=== PATIENT | female | born 1995 | race Caucasian/White ===

== ENCOUNTER 2018-05-03 00:51 | Emergency (ER) | payer OTHER ==
[~2018-05-03] VITALS: Ht 154.9 cm; Wt 88.9 kg
[2018-05-03 01:29] VITALS: Ht 154.9 cm; Wt 88.9 kg
[2018-05-03 02:17] VITALS: BP 123/77
== END 2018-05-03 02:44 | disposition home or self-care (01) ==
LOC: ED 00:51
DX: S20.212A Contusion of left front wall of thorax, initial encounter (principal); S40.022A Contusion of left upper arm, initial encounter; V43.52XA Car driver injured in collision with other type car in traffic accident, initial encounter; Y93.I9 Activity, other involving external motion; Y92.89 Other specified places as the place of occurrence of the external cause; Y99.8 Other external cause status

== ENCOUNTER 2018-11-13 15:03 | Emergency (ER) | payer OTHER ==
[~2018-11-13] VITALS: Ht 154.9 cm; Wt 93.0 kg
[2018-11-13 15:09] VITALS: Ht 154.9 cm; Wt 93.0 kg
[2018-11-13 16:48] VITALS: BP 122/86
== END 2018-11-13 16:44 | disposition home or self-care (01) ==
LOC: ED 15:03
DX: S00.03XA Contusion of scalp, initial encounter (principal); S09.8XXA Other specified injuries of head, initial encounter; W07.XXXA Fall from chair, initial encounter; Y93.89 Activity, other specified; Y92.89 Other specified places as the place of occurrence of the external cause; Y99.8 Other external cause status

== ENCOUNTER 2020-08-24 12:27 | Emergency (ER) | payer OTHER ==
[~2020-08-24] VITALS: Ht 152.4 cm; Wt 91.6 kg
[2020-08-24 12:54] VITALS: BP 154/76; Ht 152.4 cm; Wt 91.6 kg
== END 2020-08-24 14:38 | disposition home or self-care (01) ==
LOC: ED 12:27
DX: S93.402A Sprain of unspecified ligament of left ankle, initial encounter (principal); X50.1XXA Overexertion from prolonged static or awkward postures, initial encounter; Y93.01 Activity, walking, marching and hiking; Y92.89 Other specified places as the place of occurrence of the external cause; Y99.8 Other external cause status

== ENCOUNTER 2020-10-16 10:37 | Inpatient (IN) | payer OTHER ==
[~2020-10-16] VITALS: Ht 152.4 cm; Wt 89.4 kg
[2020-10-16 10:42] VITALS: Ht 152.4 cm; Wt 89.4 kg
[2020-10-16 11:19] LABS: BASOPHIL % 0.3 % (0-2); PLATELET COUNT 277 x10^3mcL (130-400); RED CELL DISTRIBUTION WIDTH 12.1 % (11.5-14.5)
[2020-10-16 12:11] LABS: CALCIUM 8.7 mg/dL (8.5-10.1); CARBON DIOXIDE 23.6 mmol/L (21-32); CHLORIDE SERUM 104 mmol/L (98-107); CREATININE SERUM 0.8 mg/dL (0.6-1.0); GFR1 > 60 mL/min; GLUCOSE SERUM 108 mg/dL (74-106); POTASSIUM SERUM 3.5 mmol/L (3.5-5.1); SODIUM SERUM 140 mmol/L (136-145)
[2020-10-16 12:16] LABS: ALBUMIN 3.5 g/dL (3.4-5.0); ALKALINE PHOSPHATASE 81 U/L (46-116); ALT/SGPT 96 U/L (14-59); AST/SGOT 100 U/L (15-37); BILIRUBIN TOTAL 0.52 mg/dL (0.20-1.00); TOTAL PROTEIN, SERUM 8.2 g/dL (6.4-8.2)
[2020-10-17 06:51] LABS: BASOPHIL % 0.2 % (0-2); PLATELET COUNT 262 x10^3mcL (130-400); RED CELL DISTRIBUTION WIDTH 12.3 % (11.5-14.5)
[2020-10-17 07:00] LABS: ALKALINE PHOSPHATASE 59 U/L (46-116); ALT/SGPT 64 U/L (14-59); AST/SGOT 38 U/L (15-37); BILIRUBIN TOTAL 0.29 mg/dL (0.20-1.00); CALCIUM 8.1 mg/dL (8.5-10.1); CHLORIDE SERUM 109 mmol/L (98-107); CREATININE SERUM 0.7 mg/dL (0.6-1.0); GFR1 > 60 mL/min; GLUCOSE SERUM 99 mg/dL (74-106); LIPASE 162 IU/L (73-393); MAGNESIUM 2.3 mg/dL (1.8-2.4); PHOSPHOROUS 3.4 mg/dL (2.5-4.9); POTASSIUM SERUM 4.1 mmol/L (3.5-5.1); SODIUM SERUM 143 mmol/L (136-145); TOTAL PROTEIN, SERUM 6.9 g/dL (6.4-8.2); TRIGLYCERIDES 174 mg/dL (<150)
[2020-10-17 07:01] LABS: ALBUMIN 2.9 g/dL (3.4-5.0); CHOLESTEROL 132 mg/dL (<200); CHOLESTEROL/HDL RATIO 4.7; HDL CHOLESTEROL 28 mg/dL (40-60)
[2020-10-17 12:22] LABS: C REACTIVE PROTEIN 1.4 mg/dL (<=0.9)
[2020-10-17] MEDS ORDERED: MOT400 PO (18:11)
[2020-10-17 18:43] VITALS: BP 135/67
== END 2020-10-17 18:43 | disposition home or self-care (01) | DRG 532 ==
LOC: ED 10:37 → MU 14:11
PROVIDERS: Emergency Medicine; ADMIT Hospitalist; ATTEND Hospitalist
DX: N83.201 Unspecified ovarian cyst, right side (principal); U07.1 COVID-19; R19.00 Intra-abdominal and pelvic swelling, mass and lump, unspecified site; R74.01 Elevation of levels of liver transaminase levels
CPT/HCPCS: 85378; G0378; J0696; J2270; J2543; J7030; J7042; Q9967; U0003

== ENCOUNTER 2020-10-31 09:03 | Inpatient (IN) | payer OTHER ==
[~2020-10-31] VITALS: Ht 152.4 cm; Wt 93.6 kg
[~2020-10-31 09:03] MED LIST: MOT400 PO
[2020-10-31 09:12] VITALS: Ht 152.4 cm; Wt 93.6 kg
--- NOTE | 2020-10-31 10:03 | NUR ---
PT. HERE FOR INCREASED ABD PAIN, RECENT DX OF LARGE OVARIAN CYST, PT. DENIES NVD, ABD LARGE AND ROUND, REPORTS GENERALIZED PAIN, NO APPARENT DISTRESS, RESPIRATIONS EVEN AND UNLABORED, AAOX4
[2020-10-31 10:12] LABS: BASOPHIL % 0.6 % (0.2-1.3); PLATELET COUNT 362 x10^3mcL (179-408)
[2020-10-31 10:37] LABS: CALCIUM 8.9 mg/dL (8.5-10.1); CARBON DIOXIDE 25.2 mmol/L (21-32); CHLORIDE SERUM 104 mmol/L (98-107); CREATININE SERUM 0.7 mg/dL (0.6-1.0); GFR1 > 60 mL/min; GLUCOSE SERUM 91 mg/dL (74-106); POTASSIUM SERUM 3.7 mmol/L (3.5-5.1); SODIUM SERUM 140 mmol/L (136-145)
[2020-10-31 10:49] LABS: ALBUMIN 3.8 g/dL (3.4-5.0); ALKALINE PHOSPHATASE 69 U/L (46-116); ALT/SGPT 25 U/L (14-59); AST/SGOT 20 U/L (15-37); BILIRUBIN TOTAL 0.5 mg/dL (0.20-1.00); LIPASE 91 IU/L (73-393); TOTAL PROTEIN, SERUM 7.6 g/dL (6.4-8.2)
--- NOTE | 2020-10-31 12:48 | NUR ---
UPDATED PT. ON PLAN OF CARE, AWAITING BED ON FLOOR, PT. VERBALIZED UNDERSTANDING, NO APPARENT DISTRESS RESPIRATIONS EVEN AND UNLABORED, AAOX4
--- NOTE | 2020-10-31 19:20 | NUR ---
RECEIVED REPORT FROM ELIDA SHEPHERD. PT IN NAD
[2020-10-31] MEDS ORDERED: TYLENOL WITH CO1 TA2 (20:47)
--- NOTE | 2020-11-01 02:16 | NUR ---
REPORT GIVEN TO DEMARIO SHEPHERD
--- NOTE | 2020-11-01 02:30 | NUR ---
RECEIVED PT FROM ED VIA WHEELCHAIR, CAME IN DUE TO RIGHT ABDOMINAL PAIN X1 MONTH. AAOX4. DENIES HEADACHE/DIZZINESS. ABLE TO FOLLOW COMMANDS. NO SOB NOTED, O2 SAT=96%, RA. DENIES CHEST PAIN/PRESSURE. DENIES ABDOMINAL PAIN/NUASEA/VOMITING. ABDOMEN IS SOFT AND ROUNDED. LAST BM-10/31/20, FORMED. VOIDS. STATED THAT SHE HAS BLADDER PAIN ON URINATION, DENIES BLOOD IN THE URINE. IV SITE PATENT AND INTACT. SIDE RAILS UPX2. CALL LIGHT ON REACH. ENDORSED TO PRIMARY NURSE NARCISO FOR CONTINUITY OF CARE
--- NOTE | 2020-11-01 02:32 | NUR ---
PT TRANSPORTED TO [facility] VIA WHEELCHAIR BY EVANGELISTA SHEPHERD. PT IN NAD
[2020-11-01 02:37] VITALS: BP 107/63
--- NOTE | 2020-11-01 02:45 | NUR ---
RECEIVED PT FROM RESOURCE NURSE. PT ALERT IN BED, ABLE TO VERBALIZE NEEDS. DENIES PAIN AT THIS TIME AND STATED SHE WANTED TO GET SOME REST. ALL NEEDS MET, SAFETY PRECAUTIONS IN PLACE, CALL BUTTON WITHIN REACH, WILL CONTINUE TO MONITOR.
[2020-11-01 06:05] VITALS: BP 113/62
--- NOTE | 2020-11-01 06:55 | NUR ---
PT SLEPT IN INTERVALS THROUGHOUT THE NIGHT BUT EASILY AROUSABLE. NO COMPLAINTS OF PAIN. NO ACUTE CHANGES OVERNIGHT. CALL BUTTON WITHIN REACH, CARE ENDORSED TO AM NURSE.
--- NOTE | 2020-11-01 07:00 | NUR ---
REC'VD PT FROM NIGHT RN. PT RESTING IN BED WITH EYES CLOSED BUT EASILY AROUSABLE. AAOX4. RES E/U. IV SITE TO LAC SL, FLUSHED AND PATENT. NO ACUTE DISTRESS NOTED. DENIES PAIN/DISCOMFORT AT THIS TIME.
[2020-11-01 07:12] LABS: BASOPHIL % 0.3 % (0.2-1.3); PLATELET COUNT 327 x10^3mcL (179-408)
[2020-11-01 07:31] LABS: ALBUMIN 3.5 g/dL (3.4-5.0); ALKALINE PHOSPHATASE 64 U/L (46-116); ALT/SGPT 29 U/L (14-59); AST/SGOT 27 U/L (15-37); BILIRUBIN TOTAL 0.7 mg/dL (0.20-1.00); CARBON DIOXIDE 26.4 mmol/L (21-32); CHLORIDE SERUM 104 mmol/L (98-107); CREATININE SERUM 0.8 mg/dL (0.6-1.0); GFR1 > 60 mL/min; GLUCOSE SERUM 73 mg/dL (74-106); MAGNESIUM 2.1 mg/dL (1.8-2.4); SODIUM SERUM 140 mmol/L (136-145); TOTAL PROTEIN, SERUM 7.1 g/dL (6.4-8.2)
[2020-11-01 08:49] VITALS: BP 106/58
--- NOTE | 2020-11-01 11:26 | NUR ---
PT C/O ABDOMINAL PAIN, GIVEN MORPHINE PER EMAR
[2020-11-01 12:57] VITALS: BP 108/63
--- NOTE | 2020-11-01 17:10 | NUR ---
OBTAINED SURGICAL CONSENT FROM PATIENT. EDUCATION GIVEN REGARDING POTENTIAL POST OP INFECTION. INSTRUCTED PT THAT SHE IS NPO AT 2330 FOR SURGERY IN THE MORNING. PT VERBALIZED UNDERSTANDING
--- NOTE | 2020-11-01 17:45 | NUR ---
PT C/O ABDOMINAL PAIN, GIVEN NORCO PER EMAR
[2020-11-01 18:36] VITALS: BP 108/76
--- NOTE | 2020-11-01 18:46 | NUR ---
NO SIGNIFICANT CHANGES NOTED. NO ACUTE DISTRESS NOTED. DENIES PAIN/DISCOMFORT AT THIS TIME. GIVEN COLD WATER REQUESTED. WILL ENDORSE CARE TO NEXT SHIFT
--- NOTE | 2020-11-01 19:15 | NUR ---
RECEIVED PT FROM AM NURSE, PT AA/O X 4 ABLE TO MAKE NEEDS KNOWN, CLEAR SPEECH. DENIES HEADACHE/ DENIES DIZZINESS. RESPIRATIONS E/U ON RA. DENIES SOB, NO RESPIRATORY DISTRESS. MED SURG, DENIES CHEST PAIN/ CHEST PRESSURE. ACTIVE BS X 4 QUADS, ABD SOFT, ROUNDED AND DISTENDED. LAST BM 10/31/20. DENIES ABD PAIN AT THIS TIME. IV TO LAC SL, INTACT FLUSHING WELL, NO ERYTHEMA/ NO INFILTRATION. DENIES PAIN. NO CONCERNS AT THIS TIME, CALL BUTTON WITHIN REACH, WILL CONTINUE TO MONITOR.
[2020-11-01 20:35] VITALS: BP 111/53
--- NOTE | 2020-11-02 01:22 | NUR ---
PT STATED 7/10 ABD PAIN, MORPHINE IVP PRN WAS GIVEN. CALL LIGHT WITHIN REACH. WILL CONTINUE TO MONITOR.
[2020-11-02 05:11] VITALS: BP 112/66
--- NOTE | 2020-11-02 05:12 | NUR ---
PT SLEPT IN INTERVALS THROUGHOUT THE SHIFT, BUT EASILY AROUSABLE. DENIES PAIN AT THIS TIME. RESPIRATIONS E/U ON RA, NO SOB. PT HAS BEEN NPO SINCE 2300 FOR SURGERY. NO ACUTE CHANGES OVERNIGHT. CALL BUTTON WITHNORA MONSALVE, WILL ENDORSE CARE TO AM NURSE
--- NOTE | 2020-11-02 07:15 | NUR ---
REC'VD PT FROM NIGHT RN. PT CURRENTLY IN OR FOR PROCEDURE. WILL ASSESS WHEN PT GETS BACK FROM PROCEDURE.
--- NOTE | 2020-11-02 07:16 | NUR ---
OR NURSE ARRIVED TO TAKE PT TO SURGERY AT THIS TIME.
[2020-11-02 08:34] LABS: BASOPHIL % 0.4 % (0.2-1.3); PLATELET COUNT 347 x10^3mcL (179-408); RED CELL DISTRIBUTION WIDTH 13.2 % (12.3-17.7)
[2020-11-02 09:13] LABS: ALBUMIN 3.6 g/dL (3.4-5.0); ALKALINE PHOSPHATASE 69 U/L (46-116); ALT/SGPT 30 U/L (14-59); AST/SGOT 16 U/L (15-37); BILIRUBIN TOTAL 0.67 mg/dL (0.20-1.00); CALCIUM 8.8 mg/dL (8.5-10.1); CARBON DIOXIDE 28.5 mmol/L (21-32); CHLORIDE SERUM 101 mmol/L (98-107); CREATININE SERUM 0.8 mg/dL (0.6-1.0); GFR1 > 60 mL/min; GLUCOSE SERUM 72 mg/dL (74-106); MAGNESIUM 2.1 mg/dL (1.8-2.4); POTASSIUM SERUM 3.2 mmol/L (3.5-5.1); SODIUM SERUM 141 mmol/L (136-145); TOTAL PROTEIN, SERUM 7.5 g/dL (6.4-8.2)
--- NOTE | 2020-11-02 10:00 | NUR ---
PT BACK FROM PROCEDURE S/P EX LAP VIA BED ACCOMPANIED BY SUPERVISOR TUNNEL HEADING. REV'CD REPORT FROM SUPERVISOR TUNNEL HEADING AT BEDSIDE. AAOX4, PT APPEARS DROWSY BUT EASILY AROUSABLE. RES E/U. PT C/O PAIN BUT PT WAS GIVEN DILAUDID BY SUPERVISOR TUNNEL HEADING AND NOT DUE FOR PAIN MEDICATION. VSS.
--- NOTE | 2020-11-02 14:57 | NUR ---
PT C/O 06/19 ABDOMINAL PAIN, GIVEN MORPHINE PER EMAR
--- NOTE | 2020-11-02 15:20 | NUR ---
PT REQUESTED TO HAVE LAC IV REMOVED. REMOVED IV TO LAC AND CATHETER INTACT
[2020-11-02 17:00] VITALS: BP 127/78
--- NOTE | 2020-11-02 18:48 | NUR ---
NO SIGNIFICANT CHANGES NOTED. PT DENIES PAIN/DISCOMFORT. PT RESTING IN BED WITH DINNER TRAY AND TALKING ON CELLPHONE. WILL ENDORSE TO NEXT SHIFT
--- NOTE | 2020-11-02 19:50 | NUR ---
RECIEVED REPORT FROM AM NURSE. PT IS A&OX4, CALM AND COOPERATIVE. PT REPORTS 8/10 PAIN IN THE ABDOMEN. PT HAD SURGERY THIS MORNING. DRESSING IS CLEAN AND DRY. TEMP 98.1, HR 103, R 16, BP 127/78, SPO2 98%. PT HAS A CASTRO CATHETER, URINE IS YELLOW AND CLEAR. PULSES ARE EQUAL AND STRONG BILATERALLY. CALL LIGHT WITHIN REACH. WILL CONTINUE TO MONITOR
--- NOTE | 2020-11-02 20:30 | NUR ---
PT STATE 8/10 PAIN IN ABDOMEN. MORPHINE IV WAS GIVEN AT 1999. REASSESSED AT 2029. PT DECREASED TO 2/10 PAIN. PAIN IS TOLERABLE. CALL LIGHT WITHIN REACH. WILL CONTINUE TO MONITOR.
[2020-11-02 20:52] VITALS: BP 125/76
--- NOTE | 2020-11-03 00:49 | NUR ---
PT STATED 8/10 PAIN IN ABD. ADMINISTERED PRN MORPHINE IVP. CALL LIGHT IN REACH. WILL CONTINUE TO MONITOR.
--- NOTE | 2020-11-03 01:10 | NUR ---
PT REASSESSED FOR PAIN. PRN MORPHINE IVP WAS EFFECTIVE. PAIN DECREASED FROM 8/10 TO 2/10. PT WAS EDUCATED TO STAND UP, WALK IN PLACE, AND TO DO DEEP BREATHING EXERCISES. PATIENT WAS ABLE TO STAND AND WALK IN PLACE. PT TOLERATED WELL. PT WENT BACK TO BED. CALL LIGHT WITHIN REACH. WILL CONTINUE TO MONITOR.
--- NOTE | 2020-11-03 05:08 | NUR ---
PT WAS RESTING WITH EYES CLOSED BUT WAS EASILY AROUSABLE. PT STATED 4/10 PAIN IN ABD, PAIN WAS TOLERABLE. CALL LIGHT WITHIN REACH. WILL CONTINUE TO MONITOR.
[2020-11-03 05:30] VITALS: BP 114/69
--- NOTE | 2020-11-03 06:19 | NUR ---
PT IS RESTING WITH EYES CLOSED BUT IS EASILY AROUSABLE. PT HAS NO N/V/D. PT'S HAS ABD PAIN THAT IS RATED AT 3/10 BUT IS TOLERABLE. DRESSING IS CLEAN AND DRY IN THE ABD. ABD WAS PLACED BACK IN PLACE. NO ACUTE DISTRESS NOTED. CALL LIGHT WITHIN REACH. WILL ENDORSE TO AM NURSE.
[2020-11-03 08:00] LABS: BASOPHIL % 0.2 % (0.2-1.3); PLATELET COUNT 316 x10^3mcL (179-408); RED CELL DISTRIBUTION WIDTH 13.1 % (12.3-17.7)
[2020-11-03 08:01] VITALS: BP 122/76
[2020-11-03 08:11] LABS: ALKALINE PHOSPHATASE 62 U/L (46-116); ALT/SGPT 21 U/L (14-59); AST/SGOT 16 U/L (15-37); BILIRUBIN TOTAL 0.4 mg/dL (0.20-1.00); CALCIUM 8.5 mg/dL (8.5-10.1); CARBON DIOXIDE 26.1 mmol/L (21-32); CHLORIDE SERUM 104 mmol/L (98-107); CREATININE SERUM 0.7 mg/dL (0.6-1.0); GFR1 > 60 mL/min; GLUCOSE SERUM 93 mg/dL (74-106); MAGNESIUM 1.8 mg/dL (1.8-2.4); POTASSIUM SERUM 4.1 mmol/L (3.5-5.1); SODIUM SERUM 139 mmol/L (136-145); TOTAL PROTEIN, SERUM 6.5 g/dL (6.4-8.2)
--- NOTE | 2020-11-03 10:04 | NUR ---
RECEIEVED REPORT FROM PM NURSE, PT LYING IN BED. A/O X4, FOLLOWS 2-STEP COMMANDS, MAXT 97.9. HR 74, RRR S1 S2 NOTED. PEIPHERAL PULSES EQUAL PALPABLE, CAP REFILL <3 SEC, COLOR APPROPRIATE FOR ETHNICITY, NO EDEMA NOTED. LUNG SOUNDS CTA, O2 SAT 97%. BOWEL SOUNDS HYPOACTIVE X4, PT STATES PASSING GAS SINCE 11/02 PROCEDURE, LAST BM 10/31/20. PT CONTINENT, STATES URINE CLEAR, YELLOW. FULL ACTIVE ROM, NO WEAKNESS NOTED. SKIN INTACT. PAIN 6/10 IN ABD. RFA IV 22G. WILL CONTINUE TO MONITOR. BED IN LOWEST POSITION, RAILS UP, CALL LIGHT WITHIN REACH.
[2020-11-03 11:45] VITALS: BP 126/84
[2020-11-03] MEDS ORDERED: ACETAMINOPHEN-H1 TA1 PO (13:01)
[2020-11-03 13:04] VITALS: BP 126/84
[2020-11-03 16:39] VITALS: BP 123/73
--- NOTE | 2020-11-03 16:50 | NUR ---
DR. GOODWIN AT BEDSIDE, STATES PT IS ABLE TO BE D/C UPON DR. MCBRIDE ONGYN CONSULT. DR. MCBRIDE INFORMED, STATES PT IS TO BE D/C W INSTRUCTIONS TO MAKE APPT W DR. MCBRIDE IN 1 WEEK'S TIME. CASTRO D/C. IV D/C, CATHETER INTACT. D/C EDUCATION PROVIDED TO PT. PT HAS NO FURTHER QUESTIONS/CONCERNS AT THIS TIME.
== END 2020-11-03 17:01 | disposition home or self-care (01) | DRG 513 ==
LOC: ED 09:03 → MU 12:15
PROVIDERS: Obstetrics & Gynecology; Student in an Organized Health Care Education/Training Program; ADMIT Hospitalist; ATTEND Student in an Organized Health Care Education/Training Program
PROC: 0UT50ZZ Resection of Right Fallopian Tube, Open Approach (ICD-10-PCS; 2020-11-02)
PROC: 0UB00ZZ Excision of Right Ovary, Open Approach (ICD-10-PCS; principal; 2020-11-02 07:30)
DX: N83.201 Unspecified ovarian cyst, right side (principal); U07.1 COVID-19
CPT/HCPCS: G0378; J0690; J1170; J1885; J2270; J2405; J3010; Q9967; U0003